=== PATIENT | female | born 1970 ===

== ENCOUNTER 2019-10-09 07:42 | Day surgery (SDC) | payer OTHER, SELFPAY ==
[2019-10-08 10:45] VITALS: BMI 25.6
[2019-10-09] VITALS (12 sets, daily range): BP systolic 99–137; BP diastolic 57–82; PULSE 80–116; RESP 11–17; TEMP 36.1–36.7; O2SAT 98–100; BMI 25.6
--- NOTE | 2019-10-09 | PATH_ITS ---
[facility] Accession Number: [id number] . 01 Material submitted: . uterine adnexa - RIGHT OVARY AND FALLOPIAN TUBE . 02 Diagnosis: Right Ovary and Fallopian Tube, Right Oophorectomy and Salpingectomy: Ovary with a benign, hemorrhagic corpus luteum cyst and rare, benign inclusion cysts (less than 1 mm in greatest dimension). Complete cross sections of segment of fallopian tube x1 with multiple benign paratubal cysts (1-12 mm in greatest dimension). Negative for atypia or malignancy. MRV 10/13/2019 1118 Local . 02 Electronically signed: . Allyn Simeon MD, Pathologist NPI- [id number] . 01 Gross description: . Received in formalin, labeled right ovary and fallopian tube, is an ovary (2.9 x 1.8 x 0.9 cm) with an attached fimbriated fallopian tube (length-4.2 cm, diameter-0.5 cm). The ovary has rodriguez-yellow smooth shiny bosselated serosa and rodriguez-white solid parenchyma with corpus luteum and corpus albicans identified. The fallopian tube has brown smooth shiny serosa with multiple paratubal cysts (0.1 cm-1.2 cm) containing turbid solid soft material and clear colorless fluid. The lumen is rodriguez and unremarkable. Section code: (A1, A2) ovary, rental sales representative serial sections; (A3) fallopian tube, rental sales representative serial sections; (A4) fimbria, bivalved, entirely submitted. ([id number]) /MRV 10/10/2019 1149 Local . 02 Pathologist provided ICD-10: N83.201, N83.11 . [address] [facility] . [id number] Performed at: 01 [facility] [address] [address], [place], [place] [id number] MD Nasim Rain MD Phone: [phone] Performed at: 02 [facility] [place] [address] [place] [id number] MD Carissa Crews MD Phone: [phone]
[2019-10-09] MEDS: LACTATED RINGERS 1,000 ML 100 ML IV ×2 (08:29→09:43)
[2019-10-09] MEDS: APREPITANT 40 MG CAPSULE PO (08:31)
--- NOTE | 2019-10-09 08:34 | PM.PREOP ---
Pre-operative Note Interval Note History & Physical reviewed/Exam performed by Physician: Yes Changes to H&P: No H&P completed within 30 days and has changed as indicated here:: See outpatient note from 10/01/2019
--- NOTE | 2019-10-09 09:19 | SUR.OPER ---
Lithotomy on padded OR bed, head on pillow, arms secured on padded arm boards at <90 degrees abduction. Legs secured in padded yellow fins stirrups.
[2019-10-09] MEDS: BUPIVACAINE 0.5% W/ EPI (PF) VIAL 30 ML INJ (10:00)
--- NOTE | 2019-10-09 10:06 | PM.OP.1 ---
Operative Date/Time/Diagnoses Date of procedure: 10/09/19 Time of procedure: 10:06 Pre-op diagnosis: Recurring right ovarian cysts and pain Post-op diagnosis: same Procedure & Clinicians Procedure: Laparoscopic right salpingo-oophorectomy with lysis of adhesions Same procedure as scheduled: Yes Indications: Recurring right ovarian cysts and pain in the right lower quadrant Surgeon: Lin Toscano Click Yes if Unassisted: Yes Anesthesia Type: General Operative Notes Findings: Status post hysterectomy with normal tubes and ovaries bilaterally. Mild adhesions of the colon to the right sidewall near the appendix, normal appearing and appendix. Mild adhesions of the descending colon to the left sidewall with adhesion to the left tube and ovary which were lysed. No internal hernias. No endometriosis. Normal appearing bowel surface and liver. Closure Type: primary Specimen(s): other (Right tube and ovary) Estimated Blood Loss (mL): 5 Procedure in detail: Patient was brought to the operating room where she underwent general anesthesia. She was placed in low yellowfin stirrups and prepped and draped in usual sterile fashion. No antibiotics were indicated. Pulsatile stockings were in place and functional. Warming was with Lizette Hugger. A check system was reviewed with the staff in the room. The area of the incisions were injected with half percent Marcaine with epinephrine. An incision was made in the umbilicus with a scalpel and the incision was carried down to the fascial layer with blunt dissection. The fascia was incised transversely and held with 0 Vicryl suture x2. Peritoneum was entered bluntly. The has sound cannula was placed in the abdomen and the abdomen insufflated with CO2. 2 5 mm trocars were placed in the right and left lower quadrant under direct visualization after incising the skin. There did not appear to be any damage with placement of the trocars. Adhesions were lysed with the PK generator and scissors. The infundibulopelvic ligament on the right side was cauterized and cut. Sequential bites taken along the broad ligament hugging the ovary until the right tube and ovary were freed. An Endo-Catch bag was placed in the abdomen and the tube and ovary placed in the Endo-Catch bag. They were brought up intact through the Alexander. Adequate hemostasis was noted. The CO2 was allowed to escape from the abdomen. The trochars were removed. Skin was closed with 4-0 monocryl. The patient went to recovery room in good condition. Complications: none Post-operative Condition: stable Disposition: same day surgery Plan for aftercare: Routine post laparoscopy
[2019-10-09] MEDS: OXYCODONE/ACETAMINOPHEN 5/325 TABLET 1 TAB PO (10:41)
== END 2019-10-09 11:40 | disposition home or self-care (01) ==
PROVIDERS: PCP Family Medicine Geriatric Medicine; Visit Provider Specialist
PROC: (CPT 58661; principal; 2019-10-09 08:45)
DX: N83.11 Corpus luteum cyst of right ovary (principal); K66.0 Peritoneal adhesions (postprocedural) (postinfection); G47.30 Sleep apnea, unspecified; G43.909 Migraine, unspecified, not intractable, without status migrainosus; M79.7 Fibromyalgia; F41.9 Anxiety disorder, unspecified; F32.9 Major depressive disorder, single episode, unspecified; R53.82 Chronic fatigue, unspecified; N83.8 Other noninflammatory disorders of ovary, fallopian tube and broad ligament; L72.0 Epidermal cyst
CPT/HCPCS: 58661; J1100; J2250; J2405; J2704; J3010; J8501

== ENCOUNTER → 2024-07-08 14:21 | Outpatient (CLI) | payer SELFPAY ==
--- NOTE | 2024-07-08 | DI.MG.S_ITS ---
BILATERAL DIGITAL SCREENING MAMMOGRAM 3D/2D WITH CAD: 07/08/2024 CLINICAL: Baseline exam. Routine screening. No prior exams were available for comparison. Both breasts are heterogeneously dense, which may obscure small masses (category c / 51-75% glandular tissue). Current study was also evaluated with a Computer Aided Detection (CAD) system. No significant masses, calcifications, or other findings are seen in either breast. IMPRESSION: NEGATIVE There is no mammographic evidence of malignancy. A 1 year screening mammogram is recommended. Based on the Tyrer Cuzick model (a risk assessment model) the patient's lifetime risk is 12.3% and her 10 year risk is 3.4%. According to the ACR, ACS, and NCCN guidelines, an annual breast MRI exam along with mammogram is recommended if the patient's lifetime risk is 20% or greater. This exam was interpreted at Station ID: [id number]. NOTE: For mammograms, a report in lay terms will be sent to the patient. Approximately 15% of breast malignancies will not be visualized mammographically. In the management of a palpable breast mass, a negative mammogram must not discourage biopsy of a clinically suspicious lesion. Electronically Signed By: David villa/rigo:07/08/2024 16:47:21 letter sent: Normal Exam ACR BI-RADS Category 1: Negative [id number]
== END ==
PROVIDERS: PCP Physician Assistant; Referring Provider Physician Assistant; Visit Provider Physician Assistant
DX: Z12.31 Encounter for screening mammogram for malignant neoplasm of breast (principal); R92.333 Mammographic heterogeneous density, bilateral breasts
CPT/HCPCS: 77063; 77067

== ENCOUNTER → 2025-05-09 14:06 | Outpatient (CLI) | payer OTHER, SELFPAY ==
--- NOTE | 2025-05-09 14:09 | DI.MRI.S_ITS ---
PROCEDURE: MR ANGIO HEAD WO CON INDICATIONS: persistent HAIRSTON with diplopia for 5 days, poor balance TECHNIQUE: Noncontrast axial 3-D [id number] MR angiogram, with 3-dimensional maximum intensity projection (MIP) reformats of the internal carotid arteries and posterior circulation then performed. COMPARISON: None. FINDINGS AND IMPRESSION: There is no large vessel occlusion. The proximal ACAs and MCA appear patent. No significant stenosis of the ICAs. Left dominant posterior circulation with patent vertebral basilar system. Flow is seen in both teletray operator. Dictated by: Ben Stacy M.D. on 05/09/2025 at 14:34 Approved by: Ben Stacy M.D. on 05/09/2025 at 14:36
--- NOTE | 2025-05-09 14:09 | DI.MRI.S_ITS ---
PROCEDURE: MR HEAD/BRAIN WO/W CON INDICATIONS: persistent HAIRSTON with diplopia for 5 days, poor balance TECHNIQUE: Noncontrast axial T1 spin echo, axial T2 fast spin echo, sagittal and axial FLAIR, coronal T2 fast spin echo, axial gradient echo, axial diffusion and ADC through the brain. After the administration of contrast, axial and coronal and sagittal 3D VIBE or T1 spin echo with fat saturation through the brain. COMPARISON: None. FINDINGS: Image quality: Diagnostic CSF spaces: Basal cisterns are patent. Lateral ventricles are symmetric. Volume: Mild volume loss. Brain: No acute diffusion restriction. No acute hemorrhage. The no suspicious focus of intraparenchymal enhancement following contrast. The dural venous sinuses appear patent. Craniofacial structures: No significant craniofacial abnormality, partially visualized. IMPRESSION: No acute infarct or hematoma. No suspicious focus of intracranial enhancement. Dictated by: Ben Stacy M.D. on 05/09/2025 at 14:32 Approved by: Ben Stacy M.D. on 05/09/2025 at 14:34
== END ==
LOC: MRI 14:07
PROVIDERS: PCP Family Medicine; Referring Provider Family Medicine; Visit Provider Family Medicine
DX: H53.2 Diplopia (principal); G43.909 Migraine, unspecified, not intractable, without status migrainosus; R42 Dizziness and giddiness; R26.89 Other abnormalities of gait and mobility; R29.90 Unspecified symptoms and signs involving the nervous system; R53.1 Weakness
CPT/HCPCS: 70544; 70553; A9579

== ENCOUNTER → 2025-05-11 10:07 | Outpatient (CLI) | payer OTHER, SELFPAY ==
[2025-05-11 19:40] LABS: HEMOLYSIS < 15 (0-50); Hemoglobin A1C% w Est Avg Glu 5.4 % (4.0-6.0); Iron 82 ug/dL (37-170)
[2025-05-11 19:41] LABS: Alanine Aminotransferase 79 IU/L (<35); Albumin 4.4 g/dL (3.5-5.0); Albumin Globulin Ratio 1.4 (1.0-2.8); Alkaline Phosphatase 106 U/L (38-126); Globulin 3.1 g/dL (1.7-4.1); HEMOLYSIS < 15 (0-50); Total Protein 7.5 g/dL (6.3-8.2)
[2025-05-11 20:10] LABS: Percent Iron Saturation 25 % (15-50); Total Iron Binding Capacity 322 ug/dL (265-497); Transferrin 270 mg/dL (206-381)
[2025-05-11 20:19] LABS: Ferritin 157 ng/mL (11-264)
[2025-05-13 04:08] LABS: Hepatitis A Antibody IgM Negative (Negative); Hepatitis B Core Antibody IgM Negative (Negative); Hepatitis C Antibody Non Reactive (Non Reactive)
[2025-05-14 16:40] LABS: Anti Mitochondrial ABY IGG <20.0 Units (0.0-20.0)
[2025-05-19 10:10] LABS: MuSK Antibodies <1.0 U/mL (.)
== END ==
PROVIDERS: PCP Family Medicine; Visit Provider Family Medicine
DX: H53.2 Diplopia (principal); R42 Dizziness and giddiness; E78.1 Pure hyperglyceridemia; R79.89 Other specified abnormal findings of blood chemistry; R53.1 Weakness; R73.9 Hyperglycemia, unspecified; I10 Essential (primary) hypertension; E78.2 Mixed hyperlipidemia
CPT/HCPCS: 80074; 80076; 82728; 83036; 83516; 83519; 83540; 83550; 83721; 84146

== ENCOUNTER → 2025-06-01 13:16 | Outpatient (CLI) | payer OTHER, SELFPAY | PROVIDERS: PCP Family Medicine; Visit Provider Family Medicine | DX: R13.19 Other dysphagia (principal); H53.2 Diplopia; R47.9 Unspecified speech disturbances | CPT/HCPCS: 83519 ==